=== PATIENT | male | born 1990 | race Caucasian/White ===

== ENCOUNTER 2020-12-25 13:11 | Emergency (ER) | payer BC, SELFPAY ==
[2020-12-25 13:11] VITALS: BP 135/73; PULSE 90; RESP 16; TEMP 37.5; O2SAT 100; BMI 32.3
--- NOTE | 2020-12-25 13:39 | RAD_ITS ---
STUDY: X-RAY - LEFT SHOULDER REASON FOR EXAM: Male, 30 years old. Left shoulder pain following a fall. TECHNIQUE: 2 view(s) of the shoulder. COMPARISON: None. FINDINGS: Normal glenohumeral articulation. Normal acromioclavicular joint. Normal acromion. I suspect a fracture at the base of the glenoid of the left scapula. Findings suggestive of a 2 adjacent soft tissue hematomas. The larger measures 7.3 cm x 3 cm. Normal visualized pulmonary apex. RAD/Shoulder min 2 Views IMPRESSION: Findings suggestive of a fracture at the base of the glenoid with the 2 adjacent hematomas in the soft tissues. Electronically Signed: Ted Clayton MD at 14:13 EDT , Service support ,
--- NOTE | 2020-12-25 13:39 | RAD_ITS ---
STUDY: X-RAY - RIGHT WRIST REASON FOR EXAM: Male, 30 years old. Pain following a fall. TECHNIQUE: 3 view(s) of the wrist were obtained. COMPARISON: None. FINDINGS: Normal visualized distal radius and ulna. Normal radiocarpal articulation. Normal distal radioulnar articulation. Normal carpal bones. Normal carpal articulations. Normal carpometacarpal articulation of the thumb. Normal second through fifth carpometacarpal articulations. Normal visualized metacarpal bones. The soft tissue structures are unremarkable. RAD/Wrist min 3 Views IMPRESSION: Normal x-ray examination of the wrist. Electronically Signed: Ted Clayton MD at 14:13 EDT , Service support ,
--- NOTE | 2020-12-25 13:40 | ED.VIS.FALL ---
HPI HPI - Fall History of Present Illness Chief Complaint: Fall Informant: patient and spouse/S.O. Occured/Mechanism Occurred: Today Usually ambulates: Without assistance Pain/Injury Pain Location: chest and upper extremity Quality of Pain: Sharp Current Severity: Moderate Maximum Severity: Moderate Associated Symptoms Associated Symptoms: Negative for Parasthesias, Weakness, Loss of function, Inability to ambulate, Loss of consciousness and Amnesia Narrative Narrative: 30-year-old male with prior left shoulder issues. Was on a ladder about 15 feet in the air when he fell landing on his right wrist. Thank you now complaining of pain to his right wrist left shoulder and right upper chest. No LOC. Denies neck pain. Denies abdominal or back pain. He is not on any blood thinners. Prior similar symptoms: No Recent Illness/Hospitalization: No PFSH PFSH Medical History Collar bone fracture Home Medications NK 12/25/20 [History Last Taken Unknown] Allergy/AdvReac Type Severity Reaction Status Date / Time peanut Allergy Anaphylaxis Verified 12/25/20 13:14 Surgical History H/O rotator cuff surgery Social History Smoking Status: Current every day smoker tobacco type: cigarettes ROS ROS ED ROS Narrative Denies recent illness. Review of Systems ROS Unobtainable: Denies due to encephalopathy Constitutional Constitutional ED: Denies chills, fever(s) or subjective Eyes Eyes: Denies change in vision ENT ENT ED: Denies ear pain or sore throat Cardiovascular Cardiovascular: Reports chest pain Respiratory/Chest Respiratory/Chest: Denies cough or dyspnea Gastrointestinal Gastrointestinal: Denies abdominal pain, diarrhea, nausea or vomiting Genitourinary Genitourinary ED: Denies dysuria Musculoskeletal Musculoskeletal: Denies myalgias Integumentary Denies rash Neurologic Neurologic: Denies headache(s) Psychiatric Psychiatric: Denies depression Endocrine Endocrinology: Denies polyuria Hematologic/Lymphatic Hematologic/Lymphatic: Denies easy bruising Allergic/Immunologic Allergic/Immunologic ED: Denies urticaria EXAM Physical Exam Narrative Exam Narrative: Well-appearing 30-year-old male. Vital signs stable afebrile. Pulse ox 9% room air no signs hypoxia. H EENT exam small abrasion left forearm. Pupils are reactive light. Scalp nontender. Neck neck nontender trachea midline. Lungs clear to auscultation bilaterally. Heart regular rate and rhythm no murmur rate about 90. Chest wall nontender. There is a deformed left upper clavicle which is old. Is nontender. Abdomen soft nontender normal bowel sounds no peritoneal signs no bruising going contact extremities moves all 4. He has decreased range of motion of his left shoulder. He has decreased range of motion and tenderness to his right distal radius. No gross bony deformity. Pelvic girdle intact. Both lower extremities are nontender with normal range of motion. Back nontender. Spine nontender. Neurologically is awake alert with no focal motor deficits. Const Vital Signs: 12/25/20 13:11 12/25/20 13:32 Temperature 99.5 F H Temperature Source Temporal Pulse Rate 90 Respiratory Rate 16 Respiratory Effort Normal Non-Labored Respiratory Depth Normal Respiratory Pattern Normal Blood Pressure 135/73 H Blood Pressure Mean 93 Pulse Ox 100 Oxygen Delivery Method Room Air Positive well nourished and well developed; Negative for obese, cachectic, contractures or unkempt General Appearance ED: well developed and NAD; Negative for unkempt, cachectic or contractures Nutritional Appearance: Negative for cachectic or obese HEENT Reports normocephalic trauma; Negative for atraumatic or tenderness Eyes PERRL and EOMs intact bilaterally Neck full ROM, no lymphadenopathy and supple General: Negative for tenderness Chest Wall inspection of chest normal and palpation of chest normal Chest Narrative: Old left clavicle fracture. Resp normal respiratory effort, no retractions and clear to auscultation bilaterally Auscultation: Negative for rales, rhonchi or wheezes Cardio regular rate, regular rhythm, S1 normal heart sound, S2 normal heart sound and no murmurs GI non-tender, non-distended and no masses Inspection: Negative for abdominal distention Auscultation: normoactive bowel sounds Palpation: soft; Negative for guarding or rebound tenderness present Rectal Exam: Negative for heme negative stool Back/Spine no CVA tenderness Cervical Spine: Negative for cervical spine tenderness Thoracic Spine / Upper Back: Negative for thoracic spinal tenderness Lumbar Spine / Lower Back: Negative for lumbar spinal tenderness or paraspinal muscle tenderness Extremity normal to inspection Extremity Narrative: Decreased range of motion left shoulder. Primarily with AB duction. Tenderness and swelling right distal radius. 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 Right elbow and shoulder nontender. Lower extremities normal range of motion. Nontender no deformity. Neuro oriented x3, moves all extremities and no focal motor deficits [place] Coma Scale: document GCS findings Spontaneous Obeys Commands Oriented 15 Sensorium / Orientation: alert, oriented to person, oriented to place and oriented to time; Negative for orientation impaired, confused, lethargic or stuporous Psych mental status grossly normal Appearance: Negative for unkempt Skin Skin Narrative: Abrasions left shoulder and upper arm. Lesions: no lesions Rashes: no rashes MDM MDM MDM Narrative Medical decision making narrative: 30-year-old male significant fall from 15 feet. Going to obtain a right wrist x-ray, left shoulder and chest. Neurologically is completely intact he was not knocked out. He is answering questions and acting appropriately. He does not anything for pain. Repeat exam patient doing well at 3:15 PM. He and I discussed his x-rays. We are awaiting the CAT scan. He can lift his arm at shoulder height but cannot raise it above it. Concern for possible rotator cuff injury. Versus a fracture. CAT scan pending. Patient be discharged home with a sling. Ice. Anti-inflammatories follow-up with orthopedics for further evaluation. If he has continued decreased range of motion of left shoulder he may need an MRI to evaluate the rotator cuff or for other possible soft tissue injuries. Radiography Diagnostic Testing: Radiology Impression Shoulder X-Ray 12/25/20 13:39 IMPRESSION: Findings suggestive of a fracture at the base of the glenoid with the 2 adjacent hematomas in the soft tissues. Electronically Signed: Ted Clayton MD at 14:13 EDT , Service support , Wrist X-Ray 12/25/20 13:39 IMPRESSION: Normal x-ray examination of the wrist. Electronically Signed: Ted Clayton MD at 14:13 EDT , Service support , Chest X-Ray 12/25/20 13:50 IMPRESSION: Normal x-ray examination of the chest. Electronically Signed: Ted Clayton MD at 14:10 EDT , Service support , Upper Extremity CT 12/25/20 15:11 IMPRESSION: Soft tissue swelling. No fracture or dislocation. Electronically Signed: Ted Clayton MD at 15:42 EDT , Service support , Left wrist x-ray 3 view shows no acute abnormality interpreted both by myself and the radiologist. Chest x-ray 2 views read both myself and the radiologist shows no acute abnormalities. No fractures. No pneumothorax. No dislocations. Left shoulder x-ray possible glenoid fracture we will obtain a CAT scan to further delineate. 3 views evaluated both by myself and the radiologist. CAT scan was obtained and read by the radiologist and showed no fracture or dislocation. Discharge Plan Triage Chief Complaint: Fall ED Provider: Rudi Ornelas Dx/Rx/DC Orders Clinical Impression: Fall, Left shoulder strain Instructions: ED Muscle Strain, Extremity Prescriptions: No Action NK RF: 0 Primary Care Provider: Care Physician,No Primary Referrals: Care Physician,No Primary [Primary Care Provider] - Jeffery Drummond DO [STAFF PHYSICIAN] - As soon as possible Activity Restrictions/Additional Instructions: Ice to left shoulder to decrease pain and swelling. Motrin to decrease pain and swelling. Your left shoulder if it is not improving you need further evaluation to rule out a rotator cuff or soft tissue injury. If you not get macular normal range of motion left shoulder you will need orthopedic evaluation and most likely an MRI. The CAT scan did not show any type of fracture. Disposition Disposition: Home, Self Care
--- NOTE | 2020-12-25 13:50 | RAD_ITS ---
STUDY: X-RAY CHEST REASON FOR EXAM: Male, 30 years old. Left shoulder and right wrist pain following a fall. TECHNIQUE: PA and lateral views of the chest. COMPARISON: None. FINDINGS: The lungs are clear and expanded. There is no demonstrated pleural abnormality. Normal size heart. Normal mediastinum and vicente. Normal visualized pulmonary arteries. Normal visualized aortic arch and descending thoracic aorta. Normal visualized thoracic spine. Normal visualized ribs, clavicles, and shoulders. There is no demonstrated abnormality of the visualized soft tissue structures of the upper abdomen. RAD/Chest PA and Lateral IMPRESSION: Normal x-ray examination of the chest. Electronically Signed: Ted Clayton MD at 14:10 EDT , Service support ,
--- NOTE | 2020-12-25 15:11 | CT_ITS ---
STUDY: CT SCAN SHOULDER LEFT REASON FOR EXAM: Male, 30 years old. Glenoid fracture on x-ray RADIATION DOSAGE (If Supplied By Facility): CTDIvol = ( 33.37 ) mGy, DLP = ( 810.98 ) mGycm. Individualized dose optimization techniques were used for this CT.? TECHNIQUE: Multiple axial tomographic images of the left shoulder were obtained without intravenous contrast demonstration. Coronal and sagittal reconstruction was obtained as well. COMPARISON: None. FINDINGS: No evidence of a subluxation of the glenohumeral joint. No fracture is seen. Soft tissue swelling. CT/Extremity Upper without Contra IMPRESSION: Soft tissue swelling. No fracture or dislocation. Electronically Signed: Ted Clayton MD at 15:42 EDT , Service support ,
== END 2020-12-25 16:43 | disposition home or self-care (01) ==
PROVIDERS: Emergency Provider Emergency Medicine
DX: S46.912A Strain of unspecified muscle, fascia and tendon at shoulder and upper arm level, left arm, initial encounter (principal); W17.89XA Other fall from one level to another, initial encounter; F17.210 Nicotine dependence, cigarettes, uncomplicated
CPT/HCPCS: 71046; 73030; 73110; 73200; 99282

== ENCOUNTER 2020-12-26 14:04 | Emergency (ER) | payer BC, SELFPAY ==
[2020-12-26 14:06] VITALS: BP 138/95; PULSE 89; RESP 16; TEMP 37.3; O2SAT 99
--- NOTE | 2020-12-26 14:16 | CT_ITS ---
STUDY: CT CHEST WITHOUT CONTRAST REASON FOR EXAM: Male, 30 years old. trauma,haemoptysis RADIATION DOSAGE (If Supplied By Facility): CTDIvol = ( 16.59 ) mGy, DLP = ( 567.80 ) mGycm TECHNIQUE: Transaxial imaging was performed without the administration of intravenous contrast material. Multiplanar coronal and sagittal images were reformatted. Individualized dose optimization techniques were used for this CT. COMPARISON: None. FINDINGS: Minimal degree of linear atelectasis at the right lung base. There is no demonstrated pleural abnormality. Normal heart and pericardium. There are multiple small lymph nodes within the mediastinum, which are normal in size and morphology most compatible with reactive lymph hyperplasia. Normal hilar regions. Normal unenhanced pulmonary arteries. Normal aorta arch and descending thoracic aorta. Normal osseous structures. There is no demonstrated abnormality of the visualized upper abdomen. CT/Chest without Contrast IMPRESSION: Normal unenhanced CT Chest examination. Electronically Signed: Ted Clayton MD at 14:43 EDT , Service support ,
== END 2020-12-26 16:27 ==
LOC: ED 16:29
DX: R04.2 Hemoptysis (principal)
CPT/HCPCS: 71250

== ENCOUNTER 2022-08-20 15:35 | Emergency (ER) | payer BC, SELFPAY ==
[2022-08-20 15:36] VITALS: BP 185/96; PULSE 125; RESP 17; TEMP 36.5; O2SAT 100; BMI 27.2
--- NOTE | 2022-08-20 15:37 | NURSING ---
NO OLD EKGS
--- NOTE | 2022-08-20 15:50 | ED.VIS.CHEST ---
HPI History of Present Illness Chief Complaint: Chest Pain Informant: patient Narrative Narrative: Patient presents with couple days history of soreness in his chest. He states prior to arrival he felt like the pain got worse and he felt very jittery and anxious. He states he had a hard time sitting still today. In route to the hospital he states his heart was pounding very hard as if it is went to pound out of his chest. He had no new [id number] medications. He did take a dose of Tylenol just prior to arrival. He is not on any prescription medications. [facility] Medical History Collar bone fracture Home Medications potassium chloride 20 mEq tablet,extended release 20 meq PO BID #8 tabs 08/20/22 [Rx Last Taken Unknown] Allergy/AdvReac Type Severity Reaction Status Date / Time peanut Allergy Anaphylaxis Verified 08/20/22 15:38 Surgical History H/O rotator cuff surgery Social History Smoking Status: Current every day smoker tobacco type: cigarettes ROS ROS ED Constitutional Constitutional ED: Denies chills or fever(s) Eyes Eyes: Denies change in vision or discharge from eye(s) ENT ENT ED: Denies discharge from eye(s), rhinorrhea or sore throat Cardiovascular Cardiovascular: Reports chest pain and racing heartbeat Respiratory/Chest Respiratory/Chest: Denies cough or dyspnea Gastrointestinal Gastrointestinal: Denies abdominal pain, diarrhea, nausea or vomiting Musculoskeletal Musculoskeletal: Denies back pain or extremity pain Integumentary Denies Abrasions or rash Neurologic Neurologic: Denies headache(s) or weakness Psychiatric Psychiatric: Reports anxiety; Denies depression Allergic/Immunologic Allergic/Immunologic ED: Denies lip swelling or urticaria EXAM Physical Exam Const Vital Signs: 08/20/22 15:36 08/20/22 15:40 08/20/22 15:50 Temperature 97.7 F L Temperature Source Temporal Pulse Rate 125 H Respiratory Rate 17 Respiratory Effort Normal Non-Labored Blood Pressure 185/96 H Blood Pressure Mean 125 Pulse Ox 100 Oxygen Delivery Method Room Air Room Air Positive well nourished and well developed General Appearance ED: well developed HEENT Reports normocephalic and head/scalp atraumatic Eyes PERRL and EOMs intact bilaterally Neck supple Chest Wall inspection of chest normal and palpation of chest normal Resp normal respiratory effort and clear to auscultation bilaterally Cardio regular rhythm Rate: tachycardic GI soft to palpation and non-tender Palpation: soft Extremity normal to inspection Neuro oriented x3 and no sensory deficits noted Sensorium / Orientation: alert Motor Exam: strength 5/5 throughout Psych mental status grossly normal Skin no rashes or lesions noted Heart Score History: Slightly/Non-Suspicious ECG: Normal Age: </= 45 years Risk Factors: No Risk Factors Troponin: </= Normal Limit Score: 0 MDM MDM MDM Narrative Medical decision making narrative: 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 EKG obtained to evaluate for cardiac arrhythmia/ischemia. Chest x-ray obtained to evaluate for acute lung pathology, cardiac size, or mediastinal abnormality. Labwork obtained to evaluate for leukocytosis, anemia, and electrolyte derangement. Aspirin given while awaiting work-up. History & Record Review Discussion w/independent historian: Patient and Family Lab Data Attestation: I reviewed the patient's lab results. Labs: Laboratory Results - last 24 hr 08/20/22 08/20/22 08/20/22 15:45 15:45 15:45 WBC 6.7 RBC 4.99 Hgb 15.9 Hct 46.1 MCV 92.4 MCH 31.9 MCHC 34.5 RDW Std Deviation 40.5 RDW Coeff of Grey 11.9 Plt Count 261 MPV 8.4 Immature Gran % (Auto) 0.400 Neut % (Auto) 53.3 Lymph % (Auto) 33.0 [place] % (Auto) 9.9 Eos % (Auto) 2.8 Baso % (Auto) 0.6 Absolute Neuts (auto) 3.6 Absolute Lymphs (auto) 2.20 Nucleated RBC % 0 D-Dimer Quant (PE/DVT) < 0.27 L Sodium 139 Potassium 2.9 L Chloride 105 Carbon Dioxide 25.0 Anion Gap 9 BUN 13 Creatinine 1.10 Estim Creat Clear Calc 99.55 Est GFR (MDRD) Af Amer 100 Est GFR (MDRD) Non-Af 82 BUN/Creatinine Ratio 11.8 Glucose 173 H Calcium 9.4 Troponin I High Sens 4 TSH 1.03 Radiography Chest X-Ray - ED: 1 View, Read by ED Physician, Normal, Heart, Lungs and Mediastinum Diagnostic Testing: Clinical Impression(s) from Imaging Studies Chest X-Ray 08/20/22 15:58 IMPRESSION: No radiographic evidence of acute cardiopulmonary disease. Electronically Signed: Bryan Patrick MD at 16:24 EDT , EKG Initial EKG: Attestation: I personally reviewed and interpreted this EKG as follows: Interpretation: Sinus Tachycardia (Sinus tach at 105. No acute ischemia.) Differential Diagnosis Chest pain/SOB: pulmonary embolism Reason(s) PE less likely: Positive for D-Dimer negative and ACS ACS: Positive for no evidence of ACS based on cardiac biomarkers and EKG without ischemia Treatment and Re-Evaluation :: CBC and chemistry studies significant for low potassium at 2.9. Glucose is elevated at 173. Troponin is normal at 4 and D-dimer is less than 0.27. TSH is normal at 1.03. On repeat evaluation patient feels much improved. His EKG reveals no evidence of ischemia and his chest x-ray is unremarkable per my interpretation as well as radiology. 60 mEq of potassium will be given orally here. I will write him for additional days of potassium replacement at home. Return instructions were provided. Discharge Plan Triage Chief Complaint: Chest Pain ED Provider: Brisa Contreras Dx/Rx/DC Orders Clinical Impression: Chest pain, Palpitations, Hypokalemia Instructions: ED Hypokalemia, ED Palpitations Prescriptions: New potassium chloride 20 mEq tablet extended release 20 meq PO BID Qty: 8 0RF Primary Care Provider: Andrei Javed Referrals: Andrei Javed MD [Primary Care Provider] - 1-2 Weeks Disposition Disposition: Home, Self Care
--- NOTE | 2022-08-20 15:58 | RAD_ITS ---
INDICATION: Chest pain, shaky, anxious EXAMINATION/TECHNIQUE: X-RAY - XR Chest 1 View COMPARISON: 12/25/2020 FINDINGS: LUNGS: No consolidation, edema or effusion. No pneumothorax. MEDIASTINUM AND CARDIOVASCULAR STRUCTURES: Cardiac silhouette not enlarged. Central airways and mediastinal contour are unremarkable. RAD/Chest 1 View (Portable) IMPRESSION: No radiographic evidence of acute cardiopulmonary disease. Electronically Signed: Bryan Patrick MD at 16:24 EDT ,
[2022-08-20 16:00] LABS: Absolute Neutrophil Count 3.6 X10^3/uL (2.0-7.7); Basophil# 0.04 X10^3/uL; Basophil% 0.6 % (0-1); Eosinophil# 0.19 X10^3/uL; Eosinophils% 2.8 % (0-5); Hematocrit 46.1 % (40-54); Hemoglobin 15.9 g/dL (13.0-16.5); Mean Corp Hgb Conc 34.5 g/dL (32-36); Mean Corpuscular Hgb 31.9 pg (27.0-32.0); Mean Corpuscular Volume 92.4 fL (80-94); Mean Platelet Vol. 8.4 fl (6.2-12.0); Monocyte# 0.66 X10^3/uL; Monocyte% 9.9 % (0-10); NRBC Flagged by Analyzer 0 % (0-5); Neutrophil # 3.55 X10^3/uL (2.7-7.7); Neutrophil % 53.3 % (47-70); Platelet Count 261 K/mm3 (150-450); RBC Distribution Width CV 11.9 % (11.6-14.6); RBC Distribution Width SD 40.5 fl (35.1-43.9); Red Blood Count 4.99 M/mm3 (4.6-6.2); White Blood Count 6.7 K/mm3 (4.4-11.0)
[2022-08-20] MEDS: Aspirin 81 MG TAB.CHEW 324 MG PO (16:03)
[2022-08-20] MEDS: 0.9% Normal Saline 1,000 ML 150 ML IV (16:03)
[2022-08-20 16:30] LABS: Anion Gap 9 (5-15); BUN 13 mg/dL (7-18); BUN/Creat Ratio 11.8 RATIO (10-20); Calcium,Total 9.4 mg/dL (8.5-10.1); Chloride 105 mmol/L (98-107); EST Glomerular Filtration Rate 82 mL/min (>60); Est Glom Filt Rate - Afr Amer 100 mL/min (>60); Estimated Creatinine Clearance 99.55 ml/min; Glucose 173 mg/dL (74-106); Potassium 2.9 mmol/L (3.5-5.1); Sodium Level 139 mmol/L (136-145); Thyroid Stim Hormone (TSH) 1.03 uIU/mL (0.358-3.74); Troponin-I HS (w/2H Reflex) 4 pg/mL (3.0-78.0)
[2022-08-20 16:32] LABS: D-Dimer Quantitative (DVT/PE) < 0.27 FEU/ug/m (0.27-0.49)
[2022-08-20 16:36] VITALS: BP 132/81
[2022-08-20] MEDS: Potassium Chloride Oral Tablet 20 MEQ 60 MEQ PO (17:27)
[2022-08-20 17:55] LABS: Reflex Troponin-HS? (from REC) Y
== END 2022-08-20 17:35 | disposition home or self-care (01) ==
PROVIDERS: Emergency Provider Emergency Medicine; PCP Family Medicine; Visit Provider Emergency Medicine
DX: R07.9 Chest pain, unspecified (principal); E87.6 Hypokalemia; F17.210 Nicotine dependence, cigarettes, uncomplicated; R00.2 Palpitations
CPT/HCPCS: 71045; 80048; 84443; 84484; 85025; 85379; 93005; 96360; 96361; 99285; J7030; A4216